=== PATIENT | male | born 1970 | race Caucasian/White ===

== ENCOUNTER 2019-02-17 17:25 | Inpatient (IN) | payer MEDICAID ==
[~2019-02-17] VITALS: Ht 175.3 cm; Wt 94.8 kg
[2019-02-17 17:28] VITALS: BP 150/96
--- NOTE | 2019-02-17 17:40 | NUR ---
TRIAGE COMPLETE. TO WAIT IN LOBBY FOR BED IN ED. VSS.
[2019-02-17 18:08] LABS: BASOPHILS # (AUTO) 0.1 K/uL (0.00-0.22); BASOPHILS % (AUTO) 0.5 % (0.0-2.0); EOSINOPHILS % (AUTO) 0.1 % (0.0-4.0); HEMATOCRIT 47.1 % (36-52); HEMOGLOBIN 15.8 g/dL (12.0-18.0); LYMPHOCYTES # (AUTO) 1.5 K/uL (2.0-11.5); LYMPHOCYTES % (AUTO) 9.4 % (20.5-51.1); MEAN CORPUSCULAR HEMOGLOBIN 29 pg (27-31); MEAN CORPUSCULAR HGB CONC 34 g/dL (33-37); MEAN CORPUSCULAR VOLUME 85.6 fL (80-94); MONOCYTES # (AUTO) 1.1 K/uL (0.8-1.0); MONOCYTES % (AUTO) 7.1 % (1.7-9.3); NEUTROPHILS # (AUTO) 12.8 K/uL (1.8-7.7); NEUTROPHILS % (AUTO) 82.9 % (42.2-75.2); PLATELET COUNT (AUTO) 303 K/uL (140-450); RED BLOOD CELL COUNT(AUTO) 5.49 MIL/uL (4.20-6.10); RED CELL DISTRIBUTION WIDTH 13.3 % (11.6-13.7); WHITE BLOOD COUNT (AUTO) 15.5 K/uL (4.8-10.8)
--- NOTE | 2019-02-17 18:18 | NUR ---
PATIENT AMBULTED TO BED 02
--- NOTE | 2019-02-17 18:34 | NUR ---
PATIENT PRESENTS TO ED WITH PT BIB PARTNER C/O BLOODY STOOLS, DIARRHEA AND ABDOMINAL PAIN X 3 DAYS. ABD PAIN DESCRIBED STABBING, 10/10, ON AND OFF. PT HAS 5-6 EPISODES OF LOOSE, WATERY/BLOODY STOOLS. PT NOTED SYMPTOMS AFTER EATING STREET TACOS. +N/V, -DYSURIA, -RETENTION. ABDOMEN SOFT, NON-TENDER, WITH HYPERACTIVE BOWEL SOUNDS ON ALL QUADRANTS. LBM: TODAY. PATIENT STATES PAIN OF 3/10 AT THIS TIME; VSS; PATIENT POSITIONED FOR COMFORT; HOB ELEVATED; BEDRAILS UP X2; BED DOWN. ER MD MADE AWARE OF PT STATUS. PMH: GERD MEDS: PRILOSEC ALLERGIES: NONE
[2019-02-17 18:45] LABS: APPEARANCE,URINE CLEAR (CLEAR); BILIRUBIN,URINE NEGATIVE (NEGATIVE); BLOOD, URINE TRACE-I (NEGATIVE); COLOR,URINE YELLOW (YELLOW); LEUKOCYTE ESTERASE ,URINE NEGATIVE (NEGATIVE); NITRITE, URINE NEGATIVE (NEGATIVE); PH,URINE 7.5 (5.0-9.0); UGLUCOSE TRACE (NEGATIVE)
[2019-02-17 18:47] LABS: PROTHROMBIN TIME 9.8 secs (10.8-13.4)
--- NOTE | 2019-02-17 19:11 | NUR ---
REPORT GIVEN TO GERRY ALANIS. ALL CARE TRANSFERRED AT THIS TIME.
[2019-02-17 19:12] LABS: CARBON DIOXIDE 29.6 mmol/L (21-32); CREATININE 1.1 mg/dL (0.7-1.3); POTASSIUM 3.6 mmol/L (3.5-5.1)
[2019-02-17 19:18] LABS: ALBUMIN 3.5 g/dL (3.4-5.0); TOTAL BILIRUBIN 0.5 mg/dL (0.0-1.0)
[2019-02-17 19:39] LABS: RBC,URINE 0-5 /HPF (0-5); WBC,URINE 0 /HPF (0-5)
[2019-02-17] MEDS ORDERED: ONDANSETRON 4 MG/2 ML VIAL IVP ONE (19:45)
[2019-02-17] MEDS ORDERED: NACL 0.9% 1,000 ML IV ONE (19:45)
[2019-02-17] MEDS ORDERED: MORPHINE SULFATE 4 MG/ML SYR IVP ONE ×2 (19:45→22:20)
--- NOTE | 2019-02-17 20:16 | NUR ---
Pt states pain has subsided at this time. Morphine has helped decrease pain. will continue to monitor.
--- NOTE | 2019-02-17 20:21 | NUR ---
PT TAKEN TO CT VIA WHEELCHAIR
[2019-02-17] MEDS ORDERED: PIPERACILLIN/TAZOBACTAM 4.5 GM in DEXTROSE 5% 100 ML IV ONE (21:30)
[2019-02-17] MEDS ORDERED: PIPERACILLIN/TAZOBACTAM 2.25 GM VIAL IV ONE (21:36)
--- NOTE | 2019-02-17 22:00 | NUR ---
PT IS IN BED RESTING. IV FLUIDS STILL INFUSING AT THIS TIME. ABLE TO MAKE NEEDS KNOWN. WILL CONTINUE TO MONITOR.
[2019-02-17] MEDS ORDERED: LORazepam 2 MG/ML VIAL IM/IVP PRN (23:10)
[2019-02-17] MEDS ORDERED: DOCUSATE SODIUM 100 MG GELCAP PO PRN (23:10)
[2019-02-17] MEDS ORDERED: ACETAMINOPHEN 325 MG TAB PO PRN (23:10)
[2019-02-17] MEDS ORDERED: MORPHINE SULFATE 2 MG/ML SYR IVP PRN (23:10)
[2019-02-17] MEDS ORDERED: ONDANSETRON 4 MG/2 ML VIAL IM/IVP PRN (23:10)
[2019-02-17] MEDS ORDERED: PANTOPRAZOLE 40 MG INJ VIAL IVP SCH (23:15)
--- NOTE | 2019-02-17 23:15 | NUR ---
Patient will be admitted to care of [facility]. Admited to TELE. Will go to room 120 A. Belongings list completed. Report to ИРИНА GARRETT.
[2019-02-17 23:25] VITALS: BP 148/93
--- NOTE | 2019-02-17 23:25 | NUR ---
RECEIVED BEDSIDE REPORT FROM DRY ROLLER ANNABELLE. PT IS AAOX4. RESPIRATIONS ARE EQUAL AND UNLABORED ON ROOM AIR. CC LOWER ABDOMEN PAIN 4/10 TOLERABLE AT THIS TIME. ABDOMEN IS BLOATED. ACTIVE BS X4. LBM TODAY. PT STATES DIARRHEA X2DAYS. REPORTS NOTICEABLE RED IN STOOL. DX COLITIS AND DIVERTICULITIS. EXPLAINED WE NEED TO COLLECT STOOL PT VERBALIZED UNDERSTANDING. D/T DIARRHEA WE MUST R/O C-DIFF PT PLACED ON CONTACT ISOLATION WITH BLEACH SIGN. ADMIT VS: 148/93 HR 70 98% RA RR 16 97.7. PT DENIES FEVER AT HOME. MRSA SWAB OBTAINED. ORIENTED PT TO ROOM,STAFF,CALL LIGHT AND VISITING HOURS. FRIEND IS AT BEDSIDE. POC DISCUSSED WITH PT. CALL LIGHT IS WITHIN REACH. WILL CONTINUE TO MONITOR.
[2019-02-17 23:34] LABS: BARBITURATE, URINE NEG. ng/ml (NEG <=200); BENZODIAZEPINE, URINE NEG. ng/mL (NEG <=200); CANNABINOID, URINE POS. ng/mL (NEG <=50); COCAINE, URINE NEG. ng/mL (NEG <=300); OPIATE, URINE NEG. ng/mL (NEG <=2000); PHENCYCLIDINE SCREEN,URINE NEG. ng/mL (NEG <=25)
[2019-02-17 23:50] LABS: MAGNESIUM 1.9 mg/dL (1.8-2.4); PHOSPHORUS 1.8 mg/dL (2.5-4.9); THYROID STIMULATING HORMONE 5.62 uIU/mL (0.34-3.74)
[2019-02-18] MEDS ORDERED: DICYCLOMINE HCL LIQUID 20 MG, ALUMINUM HYD/MAG/SIMETHICONE 30 ML, LIDOCAINE VISCOUS 2% ... PO ONE ×3
[2019-02-18] MEDS ORDERED: INFLUENZA VACCINE QUAD 0.5 ML SYR IMVAC PRN
--- NOTE | 2019-02-18 | NUR ---
DR. YANEZ AT BEDSIDE EXPLAINING POC. ALL QUESTIONS AND CONCERNS WERE ANSWERED BY MD. PT VERBALIZED UNDERSTANDING OF POC. WILL F/U WITH NEW ORDERS. PT IS RESTING COMFORTABLY IN BED. CALL LIGHT IS WITHIN REACH. WILL ROUND FREQUENTLY.
[2019-02-18] MEDS: NACL 0.9% 1,000 ML IV SCH ×3 (00:09→19:55)
[2019-02-18] MEDS ORDERED: PIPERACILLIN/TAZOBACTAM 3.375 GM VIAL IV ONE ×2 (00:11→06:03)
[2019-02-18] MEDS ORDERED: ALUMINUM HYD/MAG/SIMETHICONE 30 ML UDC ONE (00:12)
[2019-02-18] MEDS ORDERED: LIDOCAINE VISCOUS 2% 20 ML UDC ONE (00:12)
[2019-02-18] MEDS ORDERED: DICYCLOMINE HCL LIQUID 10 MG/5 ML UDC ONE (00:16)
[2019-02-18] MEDS: MORPHINE SULFATE 2 MG/ML SYR IVP PRN ×5 (00:24→21:10)
--- NOTE | 2019-02-18 00:24 | NUR ---
ROGE MEDICATIONS GIVEN PER ORDERS. GI COCKTAIL, PROTONIX, ZOSYN AND PRN MORPHINE FOR ABD PAIN. PT TOLERATED WELL.
[2019-02-18] MEDS: PIPERACILLIN/TAZOBACTAM 3.375 GM in DEXTROSE 5% 50 ML IV SCH ×2 (00:32→06:08)
--- NOTE | 2019-02-18 01:40 | NUR ---
PT IS SLEEPING COMFORTABLY IN BED WITH EYES CLOSED. CHEST RISE AND FALL. NO S/S OF DISTRESS. CALL LIGHT IS WITHIN REACH. WILL CONTINUE TO MONITOR.
--- NOTE | 2019-02-18 03:40 | NUR ---
PATIENT HAD BMX1 BRIGHT RED AND LIQUID. SPECIMEN COLLECTED AND SENT TO LAB FOR STOOL- C-DIFF,WBC,CX, BLOOD, OCCULT. PT STATES SOME RELIEF AFTER BM. NO S/S OF DISTRESS, DENIES DIZZINESS, DENIES HX OF HEMORRHOIDS AND REFUSED RECTAL EXAM. VITAL SIGNS ARE STABLE. SAFETY MEASURES ARE IN PLACE. CALL LIGHT IS WITHIN REACH.
[2019-02-18 04:00] VITALS: BP 147/83
[2019-02-18 05:11] LABS: BASOPHILS # (AUTO) 0.1 K/uL (0.00-0.22); BASOPHILS % (AUTO) 0.4 % (0.0-2.0); EOSINOPHILS # (AUTO) 0.1 K/uL (0-0.4); EOSINOPHILS % (AUTO) 0.8 % (0.0-4.0); HEMATOCRIT 43.9 % (36-52); HEMOGLOBIN 14.5 g/dL (12.0-18.0); LYMPHOCYTES % (AUTO) 12.4 % (20.5-51.1); MEAN CORPUSCULAR HEMOGLOBIN 28 pg (27-31); MEAN CORPUSCULAR HGB CONC 33 g/dL (33-37); MEAN CORPUSCULAR VOLUME 85.8 fL (80-94); MONOCYTES # (AUTO) 1.4 K/uL (0.8-1.0); MONOCYTES % (AUTO) 8.7 % (1.7-9.3); NEUTROPHILS # (AUTO) 12.3 K/uL (1.8-7.7); NEUTROPHILS % (AUTO) 77.7 % (42.2-75.2); PLATELET COUNT (AUTO) 253 K/uL (140-450); RED BLOOD CELL COUNT(AUTO) 5.12 MIL/uL (4.20-6.10); RED CELL DISTRIBUTION WIDTH 13.6 % (11.6-13.7); WHITE BLOOD COUNT (AUTO) 15.8 K/uL (4.8-10.8)
[2019-02-18 05:27] LABS: CARBON DIOXIDE 30.1 mmol/L (21-32); CREATININE 0.9 mg/dL (0.7-1.3); POTASSIUM 3.1 mmol/L (3.5-5.1)
[2019-02-18] MEDS ORDERED: POTASSIUM CHLORIDE 10 MEQ TABER PO SCH (06:00)
[2019-02-18] MEDS: KETOROLAC 30 MG/ML VIAL IVP PRN ×4 (06:05→23:29)
--- NOTE | 2019-02-18 06:05 | NUR ---
PRN ZOFRAN IVP AND TORADOL IVP GIVEN. ROGE ZOSYN NOW INFUSING PER ORDERS, 40MEQ K DUR GIVEN FOR K 3.1, PT TOLERATED WELL. CALL LIGHT IS WITHIN REACH.
[2019-02-18] MEDS ORDERED: metroNIDAZOLE 500 MG/NS PREMIX 100 ML IV SCH ×2 (07:00→13:00)
--- NOTE | 2019-02-18 07:10 | NUR ---
GAVE BEDSIDE REPORT TO DAY SHIFT RN. PT ENDORSED IN STABLE CONDITION.
--- NOTE | 2019-02-18 07:25 | NUR ---
RECEIVED REPORT FROM NIGHT RN. PT IS FULL CODE, NKA. IV TO LEFT AC 20G. SKIN IS INTACT, AAOX4, ON ROOM AIR. PATIENT IS AMBULATORY, NPO. RECEIVED VERBAL FROM TO INCREASE FLUIDS TO 120ML. WILL CONTINUE WITH PLAN OF CARE FOR THE DAY.
[2019-02-18 08:00] VITALS: BP 111/80
[2019-02-18] MEDS: LACTOBACILLUS RHAMNOSUS GG 1 EACH CAP PO SCH (08:15)
[2019-02-18] MEDS: PANTOPRAZOLE 40 MG INJ VIAL IVP SCH (08:16)
--- NOTE | 2019-02-18 08:18 | NUR ---
PATIENT HAS BEEN SCREENED AND CATEGORIZED HIGH NUTRITION RISK. PATIENT WILL BE SEEN WITHIN 1-2 DAYS OF ADMISSION. 02/18/19-02/19/[address]
--- NOTE | 2019-02-18 08:30 | NUR ---
ADMINISTERED MORNING MEDICATION. PATIENT TOLERATED WELL. PATIENT REFUSED HEPARIN STATING HE DID NOT WANT INJECTIONS IN HIS STOMACH IT HURTS ENOUGH ALREADY.
--- NOTE | 2019-02-18 09:46 | NUR ---
ADMINISTERED MORPHINE FOR PAIN 10/13. WILL RE ASSESS
--- NOTE | 2019-02-18 11:00 | NUR ---
PATIENT HAS HAD X2 EPISODES OF DIARRHEA. NO BLOOD FOUND IN STOOL.
--- NOTE | 2019-02-18 11:24 | NUR ---
ADMINISTERED TORADOL FOR ABDOMINAL PAIN. WILL RE-ASSESS.
[2019-02-18 12:00] VITALS: BP 151/95
--- NOTE | 2019-02-18 13:19 | NUR ---
BEGAN INFUSION OF 1ST DOSE FLAGYL
[2019-02-18] MEDS ORDERED: POTASSIUM CHLORIDE 40 MEQ, LIDOCAINE MPF 1% 25 MG in NACL 0.9% 250 ML IV SCH (13:30)
--- NOTE | 2019-02-18 13:55 | NUR ---
02/18/19 RD INITIAL ASSESSMENT COMPLETED PLEASE REFER TO NUTRITION ASSESSMENT UNDER CARE ACTIVITY FOR ESTIMATED NUTRITIONAL NEEDS. 1. CONTINUE NPO TOLERATED 2. IF/WHEN MEDICALLY STABLE TO BEGIN NUTRITION CONSIER ADVANCE DIET TOLERATED TO REGULAR 3. RD TO FOLLOW-UP 2-3 DAYS, HIGH RISK AGA GARAY, RD
--- NOTE | 2019-02-18 14:41 | NUR ---
ADMINISTERED PAIN MEDICATION FOR PAIN 11/13. PT HAD X2 MORE EPISODES OF DIARRHEA
--- NOTE | 2019-02-18 15:08 | NUR ---
Tacking Machine Operator Note: Basic Screen: Yes High Risk DC Screen [place]: HARINI VENEGAS [place] Relationship: FRIEND Pre-Admission Living Arrangements: Lives with Other Prior ADL Independent Current Home Health Name/Tel: N/A Current DME/02 Name/Tel: N/A Current Hospice Name/Tel: N/A Current Dialysis Name/Tel: N/A Healthcare Decision Maker: Patient Advance Directive No - REFUSED Physician Orders for Life Sustaining Treatment Form No Patient/Family Have Educational Needs No Information Taught: Advance Directive Person Taught: Patient Teaching Tools: Verbal Factors Affecting Learning: None Participation Level: Refused Evaluation: Verbalizes Understanding Discipline: Case Mgt/Social Svcs Tentative Discharge Plan/Destination: No Needs Identified Will require assistance post discharge: No Referred to Processing Operator: No Tentative Discharge Plan Summary: Patient is a 48 year old male admitted for colitis and diverticulitis. Patient has PMHX of GERD. Patient was admitted from home. SW verified demographics with patient. Patient stated that he lives in an apartment and his dad lives downstairs below him. Patient reports no history of mental health and no substance abuse history. SW offered education about advanced directive. Patient refused. Patient's tentative plan after discharge is to return home. No further needs identified. Signature: MAG Brown Date: Feb 18, 2019 Time: 15:07
[2019-02-18 16:00] VITALS: BP 124/85
--- NOTE | 2019-02-18 17:37 | NUR ---
ADMINISTERED PAIN MEDICATION FOR PAIN 09/13. WILL RE-ASSESS
--- NOTE | 2019-02-18 19:20 | NUR ---
RECEIVED REPORT FORM HODA RN DAYSHIFT NURSE AT BEDSIDE FOR CONTINUITY OF CARE, PT IN STABLE CONDITION.
[2019-02-18 20:00] VITALS: BP 89/43
--- NOTE | 2019-02-18 20:00 | NUR ---
PT IN BED NO S/S OF PAIN OR DISTRESS NOTED V/S FOLLOWS: T 98.5 P 86 R 18 B/P 89/43 02 95% ON ROOM AIR. IV SITE INTACT AND RUNNING N/S AT 120MLS/HR. BED LOW AND SIDE RAILS UP X2 , CALL HERNANDEZ IN REACH.
--- NOTE | 2019-02-18 21:00 | NUR ---
MD ACOSTA AT BEDSIDE FOR INFECTIOUS DISEASE MD. HE CONFIRMED THAT PT IS ON CIPRO. PT WAS GIVEN ORDERED CIPRO, HE DECLINED THE HEPARIN SHOT RISKS AND BENEFITS PRESENTED TO PT AT THIS TIME WHO VERBALIZED UNDERSTANDING. WILL MONITOR FOR ADVERSE EFFECTS.
[2019-02-18] MEDS: CIPROFLOXACIN 250 MG TAB PO SCH (21:07)
--- NOTE | 2019-02-18 21:20 | NUR ---
PT C/O SEVERE PAIN IN ABDOMEN AND REQUESTED MORPHINE IVP, PT GIVEN MEDICATION REQUESTED. WILL MONITOR FOR PAIN RELIEF.
--- NOTE | 2019-02-18 22:00 | NUR ---
PT HAD X1 LOOSE AND BLOODY STOOL.
--- NOTE | 2019-02-18 23:30 | NUR ---
PT AWAKE AND C/O SEVERE PAIN, PT WAS GIVEN ORDERED PRN/IVP TORADOL FOR SEVERE PAIN WELL REQUESTED AMBIEN FOR SLEEPLESSNESS. NORMAL SALINE FLUID BAG REPLACED AND IS RUNNING AT 120 ORDERED IV SITE INTACT AND FLUSHED PATENT. V/S FOLLOWS : T 98.1 P 80 R 18 B/P 140/86 02 97% ON ROOM AIR.
[2019-02-18] MEDS: ZOLPIDEM 5 MG TAB PO PRN (23:44)
[2019-02-19] VITALS: BP 140/86
--- NOTE | 2019-02-19 02:00 | NUR ---
PT SLEEPING IN BED NO S/S OF PAIN OR DISTRESS NOTED. BED LOW SIDE RAILS UP AND CALL HERNANDEZ IN REACH.
[2019-02-19 04:00] VITALS: BP 124/85
--- NOTE | 2019-02-19 04:20 | NUR ---
PT IN BED AROUSABLE TO NAME AND LIGHT TOUCH V/S FOLLOWS T 97.0 P 76 R 18 B/P 124/85 02 96% ON ROOM AIR.
[2019-02-19] MEDS: NACL 0.9% 1,000 ML IV SCH ×3 (04:56→20:54)
[2019-02-19] MEDS: MORPHINE SULFATE 2 MG/ML SYR IVP PRN ×3 (05:21→19:07)
--- NOTE | 2019-02-19 05:30 | NUR ---
PT UP OUT OF BED, HAD X1 LOOSE STOOL NO RECTAL BLEEDING NOTED. PT CLEANED HIMSELF , NEW GOWN PROVIDED. PT C/O OF SEVERE ABDOMINAL PAIN, GIVEN MORPHINE IVP. IV SITE INTACT AND NS RUNNING AT 120MLS/HR.
[2019-02-19 06:19] LABS: BASOPHILS # (AUTO) 0.1 K/uL (0.00-0.22); BASOPHILS % (AUTO) 0.4 % (0.0-2.0); EOSINOPHILS # (AUTO) 0.1 K/uL (0-0.4); EOSINOPHILS % (AUTO) 0.7 % (0.0-4.0); HEMOGLOBIN 14.2 g/dL (12.0-18.0); LYMPHOCYTES # (AUTO) 2.7 K/uL (2.0-11.5); LYMPHOCYTES % (AUTO) 17.8 % (20.5-51.1); MEAN CORPUSCULAR HEMOGLOBIN 29 pg (27-31); MEAN CORPUSCULAR HGB CONC 33 g/dL (33-37); MEAN CORPUSCULAR VOLUME 87.1 fL (80-94); MONOCYTES # (AUTO) 1.2 K/uL (0.8-1.0); MONOCYTES % (AUTO) 7.9 % (1.7-9.3); NEUTROPHILS # (AUTO) 11.1 K/uL (1.8-7.7); NEUTROPHILS % (AUTO) 73.2 % (42.2-75.2); PLATELET COUNT (AUTO) 257 K/uL (140-450); RED BLOOD CELL COUNT(AUTO) 4.93 MIL/uL (4.20-6.10); RED CELL DISTRIBUTION WIDTH 13.4 % (11.6-13.7); WHITE BLOOD COUNT (AUTO) 15.1 K/uL (4.8-10.8)
[2019-02-19 06:26] LABS: ANION GAP 9.3 (8-16); CARBON DIOXIDE 29.4 mmol/L (21-32); POTASSIUM 3.7 mmol/L (3.5-5.1)
[2019-02-19 06:31] LABS: MAGNESIUM 1.6 mg/dL (1.8-2.4); PHOSPHORUS 2.9 mg/dL (2.5-4.9)
--- NOTE | 2019-02-19 07:15 | NUR ---
RECEIVED REPORT FROM NURSE, AYLA. PT IS RESTING IN BED. IV RUNNING 120ML/H NS. PT IS STABLE WITHOUT SIGNS OF DISTRESS.
[2019-02-19 08:00] VITALS: BP 121/72
[2019-02-19] MEDS: CIPROFLOXACIN 250 MG TAB PO SCH ×2 (08:21→20:57)
[2019-02-19] MEDS: LACTOBACILLUS RHAMNOSUS GG 1 EACH CAP PO SCH (08:21)
[2019-02-19] MEDS: KETOROLAC 30 MG/ML VIAL IVP PRN ×3 (08:22→23:10)
[2019-02-19] MEDS: PANTOPRAZOLE 40 MG INJ VIAL IVP SCH (08:22)
--- NOTE | 2019-02-19 09:29 | NUR ---
Report given to Lynn GARRETT.
--- NOTE | 2019-02-19 09:30 | NUR ---
REPORT RECEIVED FROM ADOLFO RN, PT SLEEPING QUIETLY IN NAD, RESP EVEN UNLABORED, SKIN WARM DRY COLOR WNL, IVF INFUSING WELL, SITE WNL, ALL SAFETY MEASURES IN PLACE, CALL HERNANDEZ WITHIN REACH, WILL CONTINUE TO MONITOR.
[2019-02-19] MEDS ORDERED: GENTAMICIN PER PHARMACY MC PRN (09:55)
--- NOTE | 2019-02-19 09:55 | NUR ---
DR MA AT BEDSIDE FOR EVAL
--- NOTE | 2019-02-19 10:02 | NUR ---
PT UP TO BATHROOM, AMBULATES WITH STEADY GAIT, PT NOW SITTING UP BROTH AND JELLO GIVEN, PT DENIES N/V.
[2019-02-19 12:00] VITALS: BP 128/68
--- NOTE | 2019-02-19 12:22 | NUR ---
PT SITTING UP TOLERATING FULL LIQUID DIET, DENIES N/V
[2019-02-19] MEDS ORDERED: GENTAMICIN 120 MG in DEXTROSE 5% 100 ML IV SCH (13:00)
--- NOTE | 2019-02-19 15:10 | NUR ---
PT REPORTS SOILING HIMSELF IN BED BY ACCIDENT, LOOSE WATERY STOOL
[2019-02-19 16:00] VITALS: BP 99/63
[2019-02-19] MEDS ORDERED: MAG SULF 2000 MG/WATER PREMIX 50 ML IV SCH (16:00)
--- NOTE | 2019-02-19 16:50 | NUR ---
PT WALKING AROUND THE HALLWAY WITH STEADY GAIT
--- NOTE | 2019-02-19 19:25 | NUR ---
RECEIVED BEDSIDE REPORT FROM JOSE EDUARDO GARRETT DAYSHIFT NURSE FOR CONTINUITY OF CARE, PT IN STABLE CONDITION.
--- NOTE | 2019-02-19 19:25 | NUR ---
BEDSIDE REPORT GIVEN TO TIME BUYER NURSE AYLA MCCORMICK, PT IN STABLE CONDITION.
[2019-02-19] MEDS ORDERED: AZITHROMYCIN 250 MG TAB PO SCH (19:30)
[2019-02-19 20:00] VITALS: BP 93/50
--- NOTE | 2019-02-19 20:00 | NUR ---
PT SITTING UP IN BED IV SITE INTACT AND RUNNING NS AT 120 AND HR. V/S FOLLOWS T 97.0 P 82 R 18 B/P 93/50 02 98% ON ROOM AIR. CALL HERNANDEZ IN REACH AND ALL REQUESTED NEEDS ATTENDED BY STAFF.
[2019-02-19] MEDS: CHOLESTYRAMINE 4 GM/9 GM PKT PO SCH (20:57)
[2019-02-19] MEDS: DIPHENOXYLATE /ATROPINE 2.5 MG TAB PO PRN (20:58)
[2019-02-19] MEDS: ZOLPIDEM 5 MG TAB PO PRN (23:10)
--- NOTE | 2019-02-19 23:15 | NUR ---
PT C/O SEVERE ABDOMEN PAIN AND SLEEPLESSNESS. PT GIVEN IVP TORADOL FOR SEVERE PAIN WELL 1 TAB OF AMBIEN FOR SLEEPLESSNESS.
[2019-02-20] VITALS: BP 115/75
--- NOTE | 2019-02-20 00:30 | NUR ---
PT IN BED HE WAS AWAKE, HE SAID THAT HE HAD A BAD DREAM, WHICH IS ONE OF THE SIDE EFFECTS OF THE AMBIEN. PT VERBALIZED UNDERSTANDING AND SAID THAT HE WOULD TRY AND GO BACK TO SLEEP. PT SAID THAT HE FELT PAIN REIELF FROM THE TORADOL. V/S FOLLOWS T 98.1 P 81 R 18 B/P 115/75 02 97% ON ROOM AIR. BED LOW. CALL HERNANDEZ IN REACH AND IV SITE INTACT AND RUNNING N/S AT 120MLS/HR.
--- NOTE | 2019-02-20 03:36 | NUR ---
PT IN BED SLEEPING SOUNDLY, NO S/S OF PAIN OR DISTRESS NOTED. BED LOW SIDE RAILS UP AND CALL HERNANDEZ IN REACH. IV SITE INTACT AND HAS NS RUNNING AT 120.
[2019-02-20] MEDS: NACL 0.9% 1,000 ML IV SCH ×2 (05:15→13:40)
[2019-02-20] MEDS: MORPHINE SULFATE 2 MG/ML SYR IVP PRN ×3 (06:46→20:23)
[2019-02-20 07:08] LABS: BASOPHILS # (AUTO) 0.1 K/uL (0.00-0.22); BASOPHILS % (AUTO) 0.8 % (0.0-2.0); EOSINOPHILS # (AUTO) 0.2 K/uL (0-0.4); EOSINOPHILS % (AUTO) 2.3 % (0.0-4.0); HEMATOCRIT 38.1 % (36-52); HEMOGLOBIN 12.4 g/dL (12.0-18.0); LYMPHOCYTES # (AUTO) 2.7 K/uL (2.0-11.5); LYMPHOCYTES % (AUTO) 27.9 % (20.5-51.1); MEAN CORPUSCULAR HEMOGLOBIN 29 pg (27-31); MEAN CORPUSCULAR HGB CONC 33 g/dL (33-37); MEAN CORPUSCULAR VOLUME 87.5 fL (80-94); MONOCYTES # (AUTO) 0.8 K/uL (0.8-1.0); MONOCYTES % (AUTO) 8.4 % (1.7-9.3); NEUTROPHILS # (AUTO) 5.9 K/uL (1.8-7.7); NEUTROPHILS % (AUTO) 60.6 % (42.2-75.2); PLATELET COUNT (AUTO) 227 K/uL (140-450); RED BLOOD CELL COUNT(AUTO) 4.35 MIL/uL (4.20-6.10); RED CELL DISTRIBUTION WIDTH 13.6 % (11.6-13.7); WHITE BLOOD COUNT (AUTO) 9.7 K/uL (4.8-10.8)
[2019-02-20 07:24] LABS: ANION GAP 11.2 (8-16); CREATININE 0.9 mg/dL (0.7-1.3); POTASSIUM 4.2 mmol/L (3.5-5.1)
[2019-02-20 07:30] LABS: MAGNESIUM 1.9 mg/dL (1.8-2.4); PHOSPHORUS 3.2 mg/dL (2.5-4.9)
--- NOTE | 2019-02-20 07:31 | NUR ---
RECEIVED BEDSIDE REPORT FROM PM RN PT AWAKE IN BED PT APPEARS STABLE AND IN NO APPARENT DISTRESS. ALL SAFETY MEASURES ARE IN PLACE WILL CONTINUE TO MONITOR.
--- NOTE | 2019-02-20 09:15 | NUR ---
FREQUENT ROUNDING ON PT PT APPEARS STABLE AND IN NO APPARENT DISTRESS. ALL SAFETY MEASURES ARE IN PLACE WILL CONTINUE TO MONITOR.
[2019-02-20] MEDS: CIPROFLOXACIN 250 MG TAB PO SCH ×2 (09:23→20:26)
[2019-02-20] MEDS: LACTOBACILLUS RHAMNOSUS GG 1 EACH CAP PO SCH (09:23)
[2019-02-20] MEDS: PANTOPRAZOLE 40 MG INJ VIAL IVP SCH (09:24)
[2019-02-20] MEDS: CHOLESTYRAMINE 4 GM/9 GM PKT PO SCH ×2 (09:24→20:26)
--- NOTE | 2019-02-20 11:04 | NUR ---
FREQUENT ROUNDING ON PT PT APPEARS STABLE AND IN NO APPARENT DISTRESS. ALL SAFETY MEASURES ARE IN PLACE WILL CONTINUE TO MONITOR.
--- NOTE | 2019-02-20 13:25 | NUR ---
FREQUENT ROUNDING ON PT PT APPEARS STABLE AND IN NO APPARENT DISTRESS. ALL SAFETY MEASURES ARE IN PLACE
--- NOTE | 2019-02-20 15:05 | NUR ---
FREQUENT ROUNDING ON PT PT APPEARS STABLE AND IN NO APPARENT DISTRESS. ALL SAFETY MEASURES ARE IN PLACE WILL CONTINUE TO MONITOR
[2019-02-20] MEDS: KETOROLAC 30 MG/ML VIAL IVP PRN ×2 (17:05→23:05)
--- NOTE | 2019-02-20 17:43 | NUR ---
FREQUENT ROUNDING ON PT PT APPEARS STABLE AND IN NO APPARENT DISTRESS. ALL SAFETY MEASURES ARE IN PLACE
--- NOTE | 2019-02-20 19:37 | NUR ---
ENDORSED PT TO PM RN PT APPEARS STABLE AND IN NO APPARENT DISTRESS. ALL SAFETY MEASURES ARE IN PLACE
--- NOTE | 2019-02-20 19:38 | NUR ---
RECEIVED BEDSIDE REPORT FROM DAY SHIFT NURSE SARAH RN, PT STABLE, NO DISTRESS NOTED, IV TO L AC 20G PATENT INTACT, INFUSING WELL, PT ON ROOM AIR, NO SOB NOTED, INITIAL ASSESSMENT DONE, ALL SAFETY PRECAUTION MET, CALL LIGHT WITHIN REACH.FAMILY AT BEDSIDE, WILL CONTINUE TO MONITOR.
--- NOTE | 2019-02-20 20:26 | NUR ---
DUE MEDICATION ADMINISTERED, PT TOLERATED WELL, NO DISTRESS NOTED, CALL LIGHT WITHIN REACH, WILL CONTINUE TO MONITOR.
[2019-02-20] MEDS: DIPHENOXYLATE /ATROPINE 2.5 MG TAB PO PRN (23:04)
[2019-02-20] MEDS: ZOLPIDEM 5 MG TAB PO PRN (23:05)
--- NOTE | 2019-02-20 23:05 | NUR ---
PT STATED HAVING PAIN, MEDICATION ADMINISTERED, PT REQUESTED MEDICATION FOR DIARRHEA AND MEDICATION FOR SLEEPING, MEDICATIONS PER DR ORDERED ADMINISTERED, PT TOLERATED WELL, V/S TAKEN, WNL, CALL LIGHT WITHIN REACH, WILL CONTINUE TO MONITOR.
[2019-02-21] VITALS: BP 122/75
[2019-02-21] MEDS: NACL 0.9% 1,000 ML IV SCH ×2 (00:06→09:22)
--- NOTE | 2019-02-21 02:02 | NUR ---
PT SLEEPING, NO DISTRESS NOTED, CALL LIGHT WITHIN REACH, WILL CONTINUE TO MONITOR.
--- NOTE | 2019-02-21 04:11 | NUR ---
CHECKE DON PT, PT SLEEPING, NO DISTRESS NOTED, CALL LIGHT WITHIN REACH, WILL CONTINUE TO MONITOR.
[2019-02-21 06:46] LABS: BASOPHILS # (AUTO) 0.1 K/uL (0.00-0.22); BASOPHILS % (AUTO) 0.9 % (0.0-2.0); EOSINOPHILS # (AUTO) 0.3 K/uL (0-0.4); EOSINOPHILS % (AUTO) 3.9 % (0.0-4.0); HEMATOCRIT 37.6 % (36-52); HEMOGLOBIN 12.5 g/dL (12.0-18.0); LYMPHOCYTES # (AUTO) 2.6 K/uL (2.0-11.5); LYMPHOCYTES % (AUTO) 33.2 % (20.5-51.1); MEAN CORPUSCULAR HEMOGLOBIN 29 pg (27-31); MEAN CORPUSCULAR HGB CONC 33 g/dL (33-37); MEAN CORPUSCULAR VOLUME 86.6 fL (80-94); MONOCYTES # (AUTO) 0.6 K/uL (0.8-1.0); MONOCYTES % (AUTO) 7.8 % (1.7-9.3); NEUTROPHILS # (AUTO) 4.2 K/uL (1.8-7.7); NEUTROPHILS % (AUTO) 54.2 % (42.2-75.2); PLATELET COUNT (AUTO) 262 K/uL (140-450); RED BLOOD CELL COUNT(AUTO) 4.34 MIL/uL (4.20-6.10); RED CELL DISTRIBUTION WIDTH 13.1 % (11.6-13.7); WHITE BLOOD COUNT (AUTO) 7.8 K/uL (4.8-10.8)
[2019-02-21 07:09] LABS: ANION GAP 14.3 (8-16); CARBON DIOXIDE 25.4 mmol/L (21-32); POTASSIUM 3.7 mmol/L (3.5-5.1)
[2019-02-21 07:11] LABS: MAGNESIUM 1.6 mg/dL (1.8-2.4); PHOSPHORUS 4.1 mg/dL (2.5-4.9)
--- NOTE | 2019-02-21 07:19 | NUR ---
ENDORSED PT TO DAY SHIFT NURSE LUCINA RN, PT STABLE, NO DISTRESS NOTED, CALL LIGHT WITHIN REACH.
--- NOTE | 2019-02-21 07:20 | NUR ---
RECEIVED REPORT FROM COMPUTER SCIENCE PROFESSOR NURSE. PATIENT LYING DOWN IN BED WATCHING TV. NO DISTRESS NOTED. PAIN WITHIN TOLERABLE AT THIS TIME. AAOX4, CALM, COOPERATIVE, SKIN COLOR APPROPRIATE TO ETHNICITY, WARM TO TOUCH. SKIN INTACT. IV SITE INTACT, PATENT, AND INFUSING IVF PER MD ORDERS. RESPIRATIONS EVEN, UNLABORED, ON ROOM AIR. ABDOMEN SOFT. REVIEWED PLAN OF CARE WITH PATIENT. PATIENT VERBALIZED UNDERSTANDING. SAFETY MEASURES IN PLACE, CALL LIGHT WITHIN REACH. WILL CONTINUE TO MONITOR.
[2019-02-21 08:00] VITALS: BP 117/81
[2019-02-21] MEDS ORDERED: CIPR250T3 PO (08:43)
[2019-02-21] MEDS ORDERED: HYDR-5123 PO (08:43)
[2019-02-21] MEDS ORDERED: LACT10CA PO (08:43)
[2019-02-21] MEDS ORDERED: QUEPKT PO (08:43)
[2019-02-21] MEDS ORDERED: OMEP20TC12 PO (08:43)
[2019-02-21] MEDS ORDERED: IBUP-2213 PO (08:43)
[2019-02-21] MEDS: CIPROFLOXACIN 250 MG TAB PO SCH (08:44)
[2019-02-21] MEDS: LACTOBACILLUS RHAMNOSUS GG 1 EACH CAP PO SCH (08:44)
[2019-02-21] MEDS: PANTOPRAZOLE 40 MG INJ VIAL IVP SCH (08:44)
[2019-02-21] MEDS: KETOROLAC 30 MG/ML VIAL IVP PRN (08:45)
[2019-02-21] MEDS: CHOLESTYRAMINE 4 GM/9 GM PKT PO SCH (08:45)
--- NOTE | 2019-02-21 08:55 | NUR ---
PATIENT LYING DOWN IN BED WATCHING TV WITH COMPLAINTS OF PAIN, TORADOL GIVEN AT THIS TIME. OTHER SCHEDULED MEDICATIONS DUE GIVEN. WILL CONTINUE TO MONITOR.
[2019-02-21] MEDS ORDERED: MAGNESIUM OXIDE 400 MG TAB PO SCH ×2 (12:15→14:00)
[2019-02-21] MEDS: MORPHINE SULFATE 2 MG/ML SYR IVP PRN (12:52)
--- NOTE | 2019-02-21 13:00 | NUR ---
SCHEDULED MEDS GIVEN TO PATIENT, NO DISTRESS NOTED. WILL CONTINUE MONITOR
[2019-02-21] MEDS ORDERED: MAGNESIUM OXIDE 400 MG TAB PO ONE (13:35)
--- NOTE | 2019-02-21 14:20 | NUR ---
DISCHARGED INSTRUCTIONS/EDUCATIONS GIVEN TO PATIENT.MEDICATIONS REGIMEN EDUCATION GIVEN TO PATIENT. PATIENT VERBALIZED UNDERSTANDING OF PLAN OF CARE AND FOLLOW UP APPT WITH DEVIN FLEMING. PATIENT IS IN STABLE CONDITION AT THIS TIME AND IS TO GET DRESSED
--- NOTE | 2019-02-21 14:25 | NUR ---
PATIENT IN STABLE CONDITION, IV REMOVED, LUMEN INTACT WITH NO REDNESS, ID ARMBAND REMOVED. PT ESCORTED TO THE LOBBY WITH FATHER. PATIENT IS DISCHARGED AT THIS TIME.
== END 2019-02-21 14:25 | disposition home or self-care (01) | DRG 249 ==
LOC: MED 17:25 → MTU 22:37 → MMU 02-19 11:13 → MTU 02-19 11:25
PROVIDERS: ADMIT General Practice; ATTEND General Practice
DX: A09 Infectious gastroenteritis and colitis, unspecified (principal); R65.10 Systemic inflammatory response syndrome (SIRS) of non-infectious origin without acute organ dysfunction; E83.42 Hypomagnesemia; K57.92 Diverticulitis of intestine, part unspecified, without perforation or abscess without bleeding; K21.9 Gastro-esophageal reflux disease without esophagitis; E66.9 Obesity, unspecified; I10 Essential (primary) hypertension; Z23 Encounter for immunization; Z68.30 Body mass index [BMI] 30.0-30.9, adult
CPT/HCPCS: 36415; 71045; 80048; 80053; 80305; 81001; 82272; 83036; 83690; 83735; 84100; 84134; 84443; 85025; 85610; 85730; 87045; 87070; 87081; 87186; 89055; 96361; 96365; 96375; 96376; 99285; C9113; J1580; J1644; J1885; J2001; J2270; J2405; J2543; J3475; J3480; J3490; J7030; J7060; Q0092; Q9967

== ENCOUNTER 2019-03-28 22:42 | Emergency (ER) | payer MEDICAID ==
[~2019-03-28] VITALS: Ht 175.3 cm; Wt 98.0 kg
[~2019-03-28 22:42] MED LIST: CIPR250T3 PO; HYDR-5123 PO; IBUP-2213 PO; LACT10CA PO; OMEP20TC12 PO; QUEPKT PO
[2019-03-28 22:45] VITALS: BP 188/55
--- NOTE | 2019-03-28 22:50 | NUR ---
PT AMBULATED TO ROOM #4
--- NOTE | 2019-03-28 22:51 | NUR ---
RECIVED REPORT FROM DANIA GARRETT.
--- NOTE | 2019-03-28 22:55 | NUR ---
48 Y/O MALE BIB SELF WITH C/O LEFT SIDED THROAT PAIN THAT RADIATES TO EAR X 1 WEEK. PT C/O 5/10 PAIN WHEN SPEAKING OR SWALLOING. PT ALSO NOTED WITH SORE ON LEFT SIDE OF TOUNGE. PT STATES HE DID NOT BITE HIS TOUNGE IT JUST APPEARED X 1 WEEK AGO. RESPIRATIONS ARE EVEN AND UNLABORED. NO ACCESSORY MUSCLE USE. SKIN IS WARM AND DRY TO TOUCH. VSS. PT RESTING IN BED WITH MANAGER FIELD AT BEDSIDE.
--- NOTE | 2019-03-28 23:55 | NUR ---
PATIENT WALKED OUT OF EMERGENCY ROOM WITHOUT SAYING ANYTHING, STOPPED AND STATED THAT HE WANTS TO GO HOME AND DOES NOT WANT TO BE HERE ANYMORE
--- NOTE | 2019-03-28 23:55 | NUR ---
PATIENT LEFT WITHOUT BEING SEEN BY DR. ZAPATA. NO FURTHER CARE PROVIDED FOR PATIENT.
== END 2019-03-28 23:55 | disposition left against medical advice (07) ==
LOC: MED 22:42
DX: R13.10 Dysphagia, unspecified (principal); Z53.21 Procedure and treatment not carried out due to patient leaving prior to being seen by health care provider
CPT/HCPCS: 81002; 81025; 96372; 99283

== ENCOUNTER 2019-12-31 19:40 | Emergency (ER) | payer MEDICAID ==
[~2019-12-31] VITALS: Ht 175.3 cm; Wt 99.3 kg
[2019-12-31 19:44] VITALS: BP 118/69
[2019-12-31 21:06] VITALS: BP 118/69
== END 2019-12-31 21:06 | disposition home or self-care (01) ==
LOC: MED 19:40
DX: L03.116 Cellulitis of left lower limb (principal); K21.9 Gastro-esophageal reflux disease without esophagitis; Z79.899 Other long term (current) drug therapy
CPT/HCPCS: 73610; 73630; 99284; Q0092